=== PATIENT | male | born 1960 | race Caucasian/White ===

== ENCOUNTER 2023-04-14 09:22 | Day surgery (SDC) | payer OTHER ==
[~2023-04-14 09:22] MED LIST: LACTATED RINGERS 1,000 ML IV SCH; SODIUM CHLORIDE 0.9% 1,000 ML IV SCH
[2023-04-14] MEDS ORDERED: SODIUM CHLORIDE 0.9% 500 ML 500 ML IV ONE (09:51)
[2023-04-14 10:03] VITALS: RESP 16; TEMP 98.8
[2023-04-14 10:25] LABS: African American GFR (CKD) >90 (>60 ml/min/1.73 sqM); Anion Gap 8 mmol/L; Blood Urea Nitrogen 18 mg/dL (9-20); Calcium 9.4 mg/dL (8.4-10.2); Carbon Dioxide 27 mmol/L (22-30); Chloride 104 mmol/L (98-107); Glucose 94 mg/dL (74-99); Non-African American GFR(CKD) >90 (>60 ml/min/1.73 sqM); Potassium 3.9 mmol/L (3.5-5.1); Sodium 139 mmol/L (137-145)
[2023-04-14] MEDS ORDERED: PROPOFOL 10 MG/ML 20 ML VIAL IV ONE (11:39)
[2023-04-14] MEDS ORDERED: LIDOCAINE 2% INJ 20 MG/ML (2 ML VIAL) ONE (11:39)
--- NOTE | 2023-04-14 12:32 | P.EPPROC ---
- EP Procedure Note Electrophysiology Procedure Note: Procedure Electrical cardioversion for atrial fibrillation A. fib with RVR, failed chemical cardioversion with flecainide Details Electrical cardioversion in the AP configuration failed to convert the patient to sinus rhythm He had one beat of sinus rhythm with immediate recurrence The external patches were repositioned Electrical cardioversion was performed Greater than 6 second pause/sinus arrest followed by resumption of sinus rhythm with PVCs in a bigeminal pattern and atrial couplets Recommend Discontinue Flecainide secondary to sinus arrest post cardioversion and failure of therapy/immediate recurrence of atrial fibrillation Continue anticoagulation with ELIQUIS Continue rate control medications with metoprolol succinate 25 mg by mouth daily Continue antihypertensive therapy
[2023-04-14 14:49] VITALS: BP 148/73; PULSE 78
== END 2023-04-14 13:21 | disposition home or self-care (01) ==
LOC: OR 09:22
PROVIDERS: ATTEND Internal Medicine Clinical Cardiac Electrophysiology
DX: I48.91 Unspecified atrial fibrillation (principal); I10 Essential (primary) hypertension; G47.33 Obstructive sleep apnea (adult) (pediatric); G40.909 Epilepsy, unspecified, not intractable, without status epilepticus; E07.9 Disorder of thyroid, unspecified; Z79.890 Hormone replacement therapy; Z79.899 Other long term (current) drug therapy; Z79.02 Long term (current) use of antithrombotics/antiplatelets
CPT/HCPCS: 92960; 80048; J2704; J2001

== ENCOUNTER 2023-06-11 09:24 | Day surgery (SDC) | payer OTHER ==
[2023-06-04 08:32] VITALS: BMI 24.3
[2023-06-11] MEDS ORDERED: LIDOCAINE 1% INJ 10MG/ML (20 ML MDV) ONE (10:24)
[2023-06-11] MEDS: SODIUM CHLORIDE 0.9% 1,000 ML IV SCH (10:27)
[2023-06-11] MEDS ORDERED: SUCCINYLCHOLINE CHLORIDE 200 MG/10 ML VIAL IV ONE (12:24)
[2023-06-11] MEDS ORDERED: PROPOFOL 10 MG/ML 20 ML VIAL IV ONE (12:24)
[2023-06-11] MEDS ORDERED: PHENYLEPHRINE-0.9% NACL SYG 1,000 MCG/10 ML SYRINGE ONE (12:24)
[2023-06-11] MEDS ORDERED: HYDROmorphone (PF) 1 MG/ML ONE (12:24)
[2023-06-11] MEDS ORDERED: fentaNYL (PF) 50 MCG/ML 2 ML AMP ONE (12:24)
[2023-06-11] MEDS ORDERED: HEPARIN SODIUM,PORCINE 10,000 UNIT/ML 1 ML VIAL ONE (12:24)
[2023-06-11] MEDS ORDERED: MIDAZOLAM 2 MG/2 ML VIAL ONE (12:24)
[2023-06-11] MEDS ORDERED: HEPARIN SOD,PORK IN 0.45% NACL 25,000 UNIT in 0.45% NACL 1 250ML.BAG IV ONE (12:45)
[2023-06-11] MEDS ORDERED: LIDOCAINE 1% INJ 10MG/ML (30 ML VIAL-PF) SQ ONE (13:06)
[2023-06-11] MEDS ORDERED: IOPAMIDOL-370 100ML BTL INJ ONE (15:21)
--- NOTE | 2023-06-11 15:35 | P.HPCAR ---
History of Present Illness This is Dr. Chisholm dictating an H/P on this patient The patient was interviewed and examined IMPRESSION / ASSESSMENT: Persistent atrial fibrillation, failed treatment Very symptomatic with RVR Normal TSH Biatrial enlargement with a PFO Moderate MR PLAN: A. fib ablation. PVI in lead AV node ablation in the left atrium HPI Patient presented to the hospital. He remains in atrial fibrillation. While he denies any dizziness or syncope he does have tiredness fatigue and shortness of breath No fever chills cough expectoration ROS: No fever chills or rigors, no cough, phlegm or expectoration, no nausea, vomiting or diarrhea, no hematuria, dysuria, no musculoskeletal complaints, no strokes or seizures, no skin lesions. EXAMINATION: Afebrile 98.3, pulse rate 120 beats a minute at rest, blood pressure 180/87 mmHg No JVD Heart sounds are irregular no murmurs Lungs are clear no rhonchi no crackles No lower extremity edema REVIEW OF LABS, ECG & MEDICAL DATA TSH 2.1 Physical Exam Vitals: Vital Signs Temp Pulse Resp BP Pulse Ox 06/11/23 10:22 98.3 F 118 H 16 180/87 94 L Intake and Output 06/11/23 06/11/23 06/11/23 06:59 14:59 22:59 Intake Total 922 Balance 922 Intake: IV 922 Other: Weight 69.7 kg Past Medical History Past Medical History: Atrial Fibrillation, Hypertension, Seizure Disorder Additional Past Medical History / Comment(s): Possible Sleep Apnea - will be having test in the future. 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 History of Any Multi-Drug Resistant Organisms: None Reported Additional Past Surgical History / Comment(s): Brain surgery to remove benign tumor, cardioversion. Past Anesthesia/Blood Transfusion Reactions: No Reported Reaction Past Psychological History: No Psychological Hx Reported Smoking Status: Never smoker Past Alcohol Use History: Occasional Past Drug Use History: None Reported - Past Family History Father Family Medical History: Cancer Additional Family Medical History / Comment(s): Colon cancer. Physical Examination Vital Signs Temp Pulse Resp BP Pulse Ox 06/11/23 10:22 98.3 F 118 H 16 180/87 94 L Intake and Output 06/11/23 06/11/23 06/11/23 06:59 14:59 22:59 Intake Total 922 Balance 922 Intake: IV 922 Other: Weight 69.7 kg Results Current Medications Generic Name Dose Route Start Last Admin Trade Name Freq PRN Reason Stop Dose Admin Lactated Ringer's 1,000 mls @ 20 mls/hr 06/11/23 06:00 Lactated Ringers IV 07/11/23 06:01 .Q24H MISTI Sodium Chloride 1,000 mls @ 20 mls/hr 06/11/23 06:00 06/11/23 10:27 Saline 0.9% IV 07/11/23 06:01 900 mls .Q24H MISTI Administration Intake and Output 06/11/23 06/11/23 06/11/23 06:59 14:59 22:59 Intake Total 922 Balance 922 Intake: IV 922 Other: Weight 69.7 kg Patient Weight 06/12/23 06:59 Weight 69.7 kg
--- NOTE | 2023-06-11 15:44 | P.EPPROC ---
- EP Procedure Note Electrophysiology Procedure Note: PROCEDURE A. fib ablation with PVI, linear ablation of the left atrial roof, left septal ablation DIAGNOSIS Persistent Atrial fibrillation with RVR, symptomatic, refractory to therapy RESULT No left atrial appendage mass seen on intracardiac echo Successful A. fib ablation/pulmonary vein isolation of all veins using cryo- ablation Complete entrance block in all 4 veins confirmed,, and left-sided veins, large right-sided veins No evidence for phrenic nerve injury Linear ablation in the left atrial roof Left atrial septal ablation Esophageal deflection YES, right-sided esophagus Electrical cardioversion with a synchronized shock across the chest YES Significantly abnormal sinus node recovery times with long postconversion pause Abnormal sinus node function/sinus node recovery times PROCEDURE DETAILS Written informed consent prior to procedure. Patient brought to the EP lab. General anesthesia given. Heparin administered. A city maintained above 300 seconds Both groins prepped and draped per protocol and venous sheaths placed. Esophagus intubated, circa catheter for temperature monitoring an endoscope for possible esophageal deflection. Phrenic nerve monitoring performed. Esophageal temperature monitoring performed. Esophageal deflection performed if circa catheter overlapping with the balloon or circa temperature less than 27.5C Intracardiac echocardiography performed. Pericardium evaluated. Left atrial appendage evaluated. Left atrium evaluated along with pulmonary veins Transseptal catheterization performed under fluoroscopic guidance and intracardiac echo guidance Cryoablation sheath exchanged, balloon catheter along with achieve catheter placed in the left atrium. Pulmonary veins isolated in the following sequence: Left superior pulmonary vein followed by left inferior pulmonary vein, followed by right inferior pulmonary vein and lastly right superior pulmonary vein. Phrenic nerve stimulation along with capture thresholds within the SVC and right superior pulmonary vein to identify the phrenic nerve proximity to the cryo- balloon. Pulmonary veins isolated and confirmed with entrance and exit block. Phrenic nerve integrity confirmed at the end of the procedure Ablation of the left atrial roof performed with sequential cryoablation lesions from the left superior to the right superior pulmonary veins. Ablation of the electrograms confirmed Ablation of the left atrial septum performed with cannulation of the superior branch of the right inferior or the inferior branch of the right superior vein to achieve ablation of the posterior septum of the left atrium. Ablation of electrograms confirmed Electrical cardioversion performed for persistence of atrial fibrillation despite successful ablation. Diagnostic catheters for the high right atrium, His bundle, coronary sinus placed. LA and RA pressures recorded RA pressure: 12/ LA pressure: 17/12 Diagnostic EP study with coronary sinus pacing and recording Baseline measurements: QRS 105 ms, QT 311 ms AH 123 ms and HV 46 ms Sinus recovery times at 600, 500, and 400 ms were 1516, 1454 and 2540. Shlomo sinus recovery times were programmed at a pacing cycle length of 400 ms AV node Wenckebach block 440 ms ME interval 228 ms post-cardioversion Venous sheaths were removed and hemostasis assured with a closure device. Patient extubated and transferred to recovery Increase procedural time During ablation multiple attempts had to be made to move the esophagus a safe distance of the from the pulmonary vein draining cryoablation, to avoid excessive thermal cooling of the esophagus This took extra time and effort to keep the esophagus a safe distance away from the cryoablation balloon. Right-sided esophagus Large left common pulmonary vein that required multiple sequential antral cryoablation lesions in the rolling fashion for complete isolation Very large left atrium and along left atrial roof Large right sided coronary veins, additional antral lesions given PROCEDURES PERFORMED Diagnostic EP study CS pacing and recording Left and right transseptal catheterization Catheter the mapping of the tachycardia Intracardiac echocardiography Pulmonary vein isolation with transseptal and comprehensive EPS, 31592 Extended procedure duration Left atrial roof line, +[id number] Linear ablation, left atrium, +[id number] Electrical cardioversion with a synchronized shock across the chest [id number]
[2023-06-11] MEDS ORDERED: ACETAMINOPHEN IV (For NPO) 1,000 MG in EMPTY BAG 1 BAG IVPB ONE (15:57)
[2023-06-11] MEDS ORDERED: ACETAMINOPHEN TAB 325 MG TAB PO PRN (15:57)
[2023-06-11] MEDS: LACTATED RINGERS 1,000 ML IV SCH (18:07)
[2023-06-11] MEDS: APIXABAN 5 MG TAB PO SCH (20:52)
[2023-06-11] MEDS ORDERED: amLODIPine 5 MG TAB PO SCH (21:00)
[2023-06-12] MEDS: LACTATED RINGERS 1,000 ML IV SCH (05:38)
[2023-06-12] MEDS: SODIUM CHLORIDE 0.9% 1,000 ML IV SCH (05:38)
--- NOTE | 2023-06-12 07:20 | P.DS ---
Providers Attending physician: Sina Chisholm Primary care physician: [facility] Course: Patient is doing well. No chest discomfort dizziness or lightheadedness Mild sore throat No dizziness no breathing trouble On examination his vitals are stable blood pressures 125/71 mmHg pulse rate is in the 80s sinus rhythm Heart sounds S1 and S2 are normal S4 present No murmurs Lungs are clear no rhonchi no crackles Impression Persistent atrial fibrillation with RVR, difficult rate control, failed drug therapy Status post A. fib ablation with PVI left atrial roof line and left atrial septal ablation Large pulmonary veins Common left-sided pulmonary vein Dilated left atrium Mild pericarditis on intracardiac echo Very abnormal sinus node recovery times Mildly abnormal AV node function Patient maintains sinus rhythm today We will discharge him later today he will continue ELIQUIS Metoprolol has been discontinued antihypertensive therapy to continue He'll see him in a week's time Patient Condition at Discharge: Stable Plan - Discharge Summary Discharge Rx Participant: No New Discharge Prescriptions: Discontinued Metoprolol Succinate [Metoprolol Succinate ER] 25 mg PO QAM No Action Apixaban [Eliquis] 5 mg PO BID Ibuprofen [Motrin] 800 mg PO Q8H PRN PRN Reason: Pain amLODIPine [Norvasc] 5 mg PO HS Lisinopril-Hctz 20-12.5 mg [Zestoretic 20-12.5] 1 tab PO DAILY Discharge Medication List Apixaban [Eliquis] 5 mg PO BID 04/10/23 [History] Ibuprofen [Motrin] 800 mg PO Q8H PRN 04/10/23 [History] Lisinopril-Hctz 20-12.5 mg [Zestoretic 20-12.5] 1 tab PO DAILY 04/10/23 [History] amLODIPine [Norvasc] 5 mg PO HS 04/10/23 [History] Follow up Appointment(s)/Referral(s): Sina Chisholm MD [STAFF PHYSICIAN] - 1 Week Activity/Diet/Wound Care/Special Instructions: Post EP study - Ablation instructions 1. Keep access sites dry for 2 days. 2. No heavy lifting or straining for 2 days. 3. Avoid bending the hips repeatedly for 2 days. 4. You may go up and down stairs slowly Call if the following is noted 1. Bleeding, increasing swelling or pain at the access sites. 2. Increasing chest discomfort, especially upon taking a deep breath. 3. Increasing shortness of breath, at rest or with exertion. 4. Undue cough / phlegm 5. Difficulty or pain while swallowing. 6. Pain or change in color in the extremities. 7. Fever, chills, rigors. 8. Increasing headache or neurologic symptoms. 9. Dizziness, fainting, palpitations Hold metoprolol Continue ELIQUIS Continue lisinopril hydrochlorothiazide Discharge Disposition: HOME SELF-CARE
[2023-06-12] MEDS ORDERED: LISINOPRIL-HCTZ 20-12.5 MG 1 EACH TAB PO SCH (09:00)
[2023-06-12] MEDS: APIXABAN 5 MG TAB PO SCH (09:00)
[2023-06-12 09:29] VITALS: BP 138/84; PULSE 74; RESP 17; TEMP 98.2
== END 2023-06-12 11:05 | disposition home or self-care (01) ==
LOC: CATHEP 09:24 → 3SCARD 15:35 → CATHEP 06-12 11:05
PROVIDERS: ATTEND Internal Medicine Clinical Cardiac Electrophysiology
DX: I48.19 Other persistent atrial fibrillation (principal); Q21.12 Patent foramen ovale; I10 Essential (primary) hypertension; G40.909 Epilepsy, unspecified, not intractable, without status epilepticus; Z80.0 Family history of malignant neoplasm of digestive organs
CPT/HCPCS: 92960; 93656; 93657; 86900; 86901; 84443; 86850; J2250; J0330; J1644 ×2; J2001; J3010; J1170; J2704; Q9967; J2371